=== PATIENT | male | born 1990 | race Caucasian/White ===

== ENCOUNTER 2018-06-14 02:43 | Emergency (ER) | payer MEDICAID, OTHER ==
[~2018-06-14] VITALS: Ht 182.9 cm; Wt 81.6 kg
[2018-06-14 02:48] VITALS: BP 109/61
--- NOTE | 2018-06-14 02:48 | NUR ---
TO BED # 11 VIA W/C, REPORT GIVEN TO NILSA BLACKWOOD
--- NOTE | 2018-06-14 02:50 | NUR ---
PT PRESENTED ER WITH C/O PAIN TO THE LOWER BACK. PT STATED THAT HE HAS HAD PAIN IN THE LOWER BACK X 1 YEAR AD HAS PROGRESSED OVER TIME. PT STATES IT RADIATES DOWN THE LEFT LEG. PAIN FEELS LIKE " SHOCK WAVES", SPASMS. PT IS A/O X4. PT HAS DIFFICULTY WALKIING DUE TO PAIN AT THIS TIME. DENES TRAUMA. PAIN LEVEL AT THIS TIME IS 8/10. ER MD MADE AWARE OF STATUS. SAFETY PRECAUTIONS ARE IMPLEMENTED AND BED RAILS UP X 1.
[2018-06-14] MEDS ORDERED: KETOROLAC 60 MG/2 ML VIAL IM ONE (03:30)
--- NOTE | 2018-06-14 03:45 | NUR ---
Note mk in EDM - 06/14/18 at 0403 by MEDJ PT HAS MEDICAL HX OF HYDRADENITIS SUPPURATIVA, A RASH ON HIS BUTTOCKS. PER PT HE IS CURRENTLY UNDER PCP CARE. FRANCISCO J COLEMAN MADE AWARE
--- NOTE | 2018-06-14 03:45 | NUR ---
PT HAS MEDICAL HX OF HYDRADENITIS SUPPURATIVA, A RASH ON HIS BUTTOCKS. PER PT HE IS CURRENTLY UNDER PCP CARE. ER MD MADE AWARE
[2018-06-14 04:14] VITALS: BP 109/61
--- NOTE | 2018-06-14 04:14 | NUR ---
Patient discharged with v/s stable. Written and verbal after care instructions given and explained. Patient alert, oriented and verbalized understanding of instructions. Ambulatory with steady gait. All questions addressed prior to discharge. ID band removed. Patient advised to follow up with PMD. Rx of MOTRIN AND NORCO WERE given. Patient educated on indication of medication including possible reaction and side effects. Opportunity to ask questions provided and answered.
== END 2018-06-14 04:14 | disposition home or self-care (01) ==
LOC: MED 02:43
DX: M54.5 Low back pain (principal)
CPT/HCPCS: 81002; 96372; 99283; J1885

== ENCOUNTER 2018-10-20 05:53 | Emergency (ER) | payer OTHER ==
[~2018-10-20] VITALS: Ht 180.3 cm; Wt 83.9 kg
[2018-10-20 06:08] VITALS: BP 125/74
--- NOTE | 2018-10-20 06:08 | NUR ---
TO BED # 12 AMBULATORY
--- NOTE | 2018-10-20 06:10 | NUR ---
CAME IN WITH THE C/O BOTH KNEE PAIN, LEFT ANKLE PAIN, LOWER BACK PAIN, FOR 3 DAYS.PATIENT UNABLE TO WALK WELL.
--- NOTE | 2018-10-20 06:50 | NUR ---
SEEN AND EXAMINED BY ULISES WITH ORDERS AND CARRIED OUT.
[2018-10-20] MEDS ORDERED: KETOROLAC 30 MG/ML VIAL IM ONE (07:00)
--- NOTE | 2018-10-20 07:02 | NUR ---
URINE COLLECTD AND TO SEND TO LAB.
--- NOTE | 2018-10-20 07:16 | NUR ---
REPORT GIVEN TO RAMESH BLACKWOOD CHARGE
[2018-10-20 08:00] LABS: APPEARANCE,URINE CLEAR (CLEAR); BILIRUBIN,URINE NEGATIVE (NEGATIVE); BLOOD, URINE 2+ (NEGATIVE); COLOR,URINE YELLOW (YELLOW); LEUKOCYTE ESTERASE ,URINE NEGATIVE (NEGATIVE); NITRITE, URINE NEGATIVE (NEGATIVE); UGLUCOSE NEGATIVE (NEGATIVE)
[2018-10-20 08:06] LABS: BARBITURATE, URINE NEG. ng/ml (NEG <=200); BENZODIAZEPINE, URINE NEG. ng/mL (NEG <=200); CANNABINOID, URINE POS. ng/mL (NEG <=50); COCAINE, URINE NEG. ng/mL (NEG <=300); OPIATE, URINE NEG. ng/mL (NEG <=2000); PHENCYCLIDINE SCREEN,URINE NEG. ng/mL (NEG <=25)
[2018-10-20 08:30] LABS: WBC,URINE 0-5 /HPF (0-5)
[2018-10-20 08:55] VITALS: BP 122/68
== END 2018-10-20 09:00 | disposition home or self-care (01) ==
LOC: MED 05:53
DX: R10.9 Unspecified abdominal pain (principal); R31.29 Other microscopic hematuria; F15.10 Other stimulant abuse, uncomplicated
CPT/HCPCS: 72100; 80305; 81001; 96372; 99284; J1885

== ENCOUNTER 2018-12-20 02:36 | Emergency (ER) | payer OTHER ==
[~2018-12-20] VITALS: Ht 180.3 cm; Wt 83.9 kg
[2018-12-20 02:45] VITALS: BP 122/74
--- NOTE | 2018-12-20 02:45 | NUR ---
TO BED # 01 AMBULATORY
--- NOTE | 2018-12-20 03:05 | NUR ---
28 YO M BIB SELF PRESENTS TO ED C/O 10 LOWER BACK PAIN X 3-4 DAYS THAT INCREASES IN INTENSITY THROUGHOUT THE DAY. PT DENIES RECENT TRAUMA/INJURY. DENIES HEMATURIA, PAIN/BURNING WITH URINATION. ADMITS TO MARIJUANA USE. PMH-- DENIES RX-- MOTRIN 600 MG @ 2400
--- NOTE | 2018-12-20 03:30 | NUR ---
Dr. Alberto examining patient.
[2018-12-20] MEDS ORDERED: KETOROLAC 30 MG/ML VIAL IM ONE (03:50)
[2018-12-20 04:04] LABS: BARBITURATE, URINE NEG. ng/ml (NEG <=200); BENZODIAZEPINE, URINE NEG. ng/mL (NEG <=200); CANNABINOID, URINE POS. ng/mL (NEG <=50); COCAINE, URINE NEG. ng/mL (NEG <=300); OPIATE, URINE NEG. ng/mL (NEG <=2000); PHENCYCLIDINE SCREEN,URINE NEG. ng/mL (NEG <=25)
--- NOTE | 2018-12-20 05:04 | NUR ---
PT TAKEN TO XRAY
[2018-12-20 05:30] VITALS: BP 118/76
== END 2018-12-20 05:30 | disposition home or self-care (01) ==
LOC: MED 02:36
DX: M54.5 Low back pain (principal)
CPT/HCPCS: 72100; 80305; 81002; 96372; 99284; J1885

== ENCOUNTER 2022-03-29 00:20 | Emergency (ER) | payer OTHER ==
[~2022-03-29] VITALS: Ht 180.3 cm; Wt 85.7 kg
[2022-03-29 00:42] VITALS: BP 122/73
--- NOTE | 2022-03-29 00:42 | NUR ---
to bed ambulatory
--- NOTE | 2022-03-29 00:48 | NUR ---
Patient BIB by family/friend. C/O skin problems x 1 months. Patient reported, had skin itchy, scratched his facial. Patient states " I used Meth".
--- NOTE | 2022-03-29 00:55 | NUR ---
Dr. Mclean examining patient.
[2022-03-29] MEDS ORDERED: CLIN1GEL2 TP (01:06)
[2022-03-29 01:11] VITALS: BP 122/73
--- NOTE | 2022-03-29 01:11 | NUR ---
Patient discharged with v/s stable. Written and verbal after care instructions given and explained. Patient alert, oriented and verbalized understanding of instructions. Ambulatory with steady gait. All questions addressed prior to discharge. ID band removed. Patient advised to follow up with PMD. Rx of Clindamycin given. Patient educated on indication of medication including possible reaction and side effects. Opportunity to ask questions provided and answered.
== END 2022-03-29 01:11 | disposition home or self-care (01) ==
LOC: MED 00:20
DX: L73.2 Hidradenitis suppurativa (principal); F15.10 Other stimulant abuse, uncomplicated; Z79.899 Other long term (current) drug therapy
CPT/HCPCS: 99283